=== PATIENT | female | born 1975 ===

== ENCOUNTER → 2024-11-03 | Day surgery (SDC) | payer OTHER ==
[~2024-11-03] MED LIST: ARMOUR THYROID120 M1 PO; CIPROFLOXACIN IN 5 % DEXTROSE 400 MG/200 ML PIGGYBAG IV ONE; GENTAMICIN SULFATE 40 MG/ML VIAL ONE; VANCOMYCIN HCL 1,000 MG VIAL ONE
== END | disposition home or self-care (01) ==
LOC: ADM 10-27 10:45 → CIR.AMB 08:00
PROVIDERS: ATTEND Obstetrics & Gynecology Gynecology
DX: N39.3 Stress incontinence (female) (male) (principal)
CPT/HCPCS: 57288; C1771